=== PATIENT | female | born 1970 | race Caucasian/White ===

== ENCOUNTER → 2024-06-22 13:31 | Outpatient (REF) | payer OTHER, SELFPAY | LOC: WDC 13:31 | PROVIDERS: ATTENDING PHYSICIAN Nurse Practitioner Family; FAMILY PHYSICIAN Family Medicine | DX: Z12.31 Encounter for screening mammogram for malignant neoplasm of breast (principal) | CPT/HCPCS: 77063; 77067 ==

== ENCOUNTER → 2025-07-17 20:01 | Outpatient (REF) | payer OTHER, SELFPAY | LOC: MRI 20:01 | PROVIDERS: ATTENDING PHYSICIAN Student in an Organized Health Care Education/Training Program; FAMILY PHYSICIAN Nurse Practitioner Family | DX: M54.12 Radiculopathy, cervical region (principal); M75.31 Calcific tendinitis of right shoulder | CPT/HCPCS: 72141; 73221 ==